=== PATIENT | male | born 1990 | race Two or more races ===

== ENCOUNTER 2024-08-11 00:04 | Inpatient (IN) | payer OTHER ==
[~2024-08-11] VITALS: Ht 170.2 cm; Wt 50.8 kg
--- NOTE | 2024-08-11 00:27 | NUR ---
PTE ALERTA Y ORIENTADO X3 REFIERE TENER INFECCION EN EL DEDO PULGAR DEL PIE JUL[place] A [place] DE [place], SE YOSVANY SV MAS SE UBICA.
[2024-08-11] MEDS ORDERED: VANCOMYCIN HCL 1,000 MG VIAL IV STA (05:10)
--- NOTE | 2024-08-11 05:32 | NUR ---
SE ORIENTA PTE SOBRE TRATAMIENTO MEDICO Y SE EJECUTA
[2024-08-11 06:13] LABS: BASO % 0.7 % (0.1-1.2); EOS # 0.04 (0.04-0.54); EOS % 0.5 % (0.7-7.0); LYMPH # 2.25 (1.18-3.74); LYMPH % 28.0 % (19.3-53.1); MEAN PLATELET VOLUME 10.00 fl (9.4-12.4); MONO # 1.12 (0.24-0.82); NEUT # 4.54 (1.56-6.13); NEUT % 56.7 % (34.0-71.1); RED CELL DISTRIBUTION WIDTH 12.1 % (11.6-14.4)
[2024-08-11 06:23] LABS: MONO % 13.9 % (4.7-12.5)
[2024-08-11 06:26] LABS: ERYTHROCYTE SEDIMENTATION RATE 7 mm/hr (0-15)
[2024-08-11 06:34] LABS: ALT/SGPT 36.0 U/L (12-78); AST/SGOT 22.0 U/L (15-37); BILIRUBIN TOTAL 0.5 mg/dL (0.3-1.2); BUN CREA RATIO 14.0 (7.0-25.0); CREATININE SERUM 1.14 mg/dL (0.70-1.30); GFR 73.1; GLOBULINA 3.0 G/DL (2.4-3.5); GLUCOSE FASTING 108.0 mg/dL (65-100); OSMOLALITY SERUM 277.0 MOSM/KG (275-295)
[2024-08-11 06:45] LABS: INR 1.07
[2024-08-11] MEDS ORDERED: 0.9 % SODIUM CHLORIDE 1,000 ML IV SCH (08:00)
[2024-08-11] MEDS ORDERED: KETOROLAC TROMETHAMINE 30 MG VIAL IM PRN (08:00)
[2024-08-11] MEDS ORDERED: DEXTROSE 50 % IN WATER 0.5 G/ML DISP.SYRIN IV PRN (08:15)
[2024-08-11] MEDS ORDERED: INSULIN LISPRO 1,000 UNIT/10 ML UNITS SUBCUTANEO PRN (08:15)
[2024-08-11] MEDS ORDERED: VANCOMYCIN HCL 1,000 MG VIAL IV SCH ×2 (09:00→17:00)
[2024-08-11] MEDS ORDERED: SODIUM HYPOCHLORITE 1OZ TOP SCH (11:04)
[2024-08-11] MEDS ORDERED: DEXTROSE 50 % IN WATER 0.5 G/ML VIAL IV PRN (19:45)
[2024-08-11 21:01] VITALS: BP 99/64
[2024-08-12 02:32] VITALS: BP 86/57; O2SAT 96
[2024-08-12 06:29] LABS: INR 1.08
[2024-08-12] MEDS ORDERED: ORPHENADRINE CITRATE 30 MG/ML AMPUL IV PRN (08:30)
[2024-08-12 08:47] VITALS: BP 95/65; O2SAT 100
[2024-08-12] MEDS ORDERED: LACTOBACILLUS ACIDOPHILUS 1 CAP CAP PO SCH (09:00)
[2024-08-12] MEDS ORDERED: FAMOTIDINE/PF 20 MG in 0.9 % SODIUM CHLORIDE 100 ML IV SCH (09:00)
[2024-08-12 17:39] VITALS: BP 98/69
[2024-08-13 01:17] VITALS: BP 100/63; BP 105/60; O2SAT 96; O2SAT 99
[2024-08-13 06:30] LABS: BUN CREA RATIO 22.0 (7.0-25.0); CREATININE SERUM 0.76 mg/dL (0.70-1.30); GFR 116.71; GLUCOSE FASTING 102.0 mg/dL (65-100); OSMOLALITY SERUM 285.0 MOSM/KG (275-295); TSH 2.24 uIU/mL (0.358-3.74)
[2024-08-13 08:44] VITALS: BP 95/57; O2SAT 98
[2024-08-13] MEDS ORDERED: LINEZOLID IN DEXTROSE 5% 300 ML IV SCH (17:00)
[2024-08-13 18:37] VITALS: BP 101/66; O2SAT 98
[2024-08-14 03:15] VITALS: BP 97/57; O2SAT 97
[2024-08-14 07:59] LABS: ALT/SGPT 28.0 U/L (12-78); AST/SGOT 17.0 U/L (15-37); BILIRUBIN TOTAL 0.67 mg/dL (0.3-1.2); BUN CREA RATIO 20.0 (7.0-25.0); CREATININE SERUM 0.87 mg/dL (0.70-1.30); GFR 99.86; GLOBULINA 2.9 G/DL (2.4-3.5); GLUCOSE FASTING 82.0 mg/dL (65-100); OSMOLALITY SERUM 282.0 MOSM/KG (275-295)
[2024-08-14 08:07] LABS: BASO % 0.9 % (0.1-1.2); EOS # 0.26 (0.04-0.54); EOS % 3.3 % (0.7-7.0); LYMPH # 2.45 (1.18-3.74); LYMPH % 31.5 % (19.3-53.1); MEAN PLATELET VOLUME 10.20 fl (9.4-12.4); MONO # 0.73 (0.24-0.82); MONO % 9.4 % (4.7-12.5); NEUT # 4.25 (1.56-6.13); NEUT % 54.6 % (34.0-71.1); RED CELL DISTRIBUTION WIDTH 12.2 % (11.6-14.4)
[2024-08-14 16:34] VITALS: BP 131/88; O2SAT 100
[2024-08-15 03:04] VITALS: BP 92/50; O2SAT 97
[2024-08-15 08:51] VITALS: BP 94/50; O2SAT 97
[2024-08-15 17:26] VITALS: BP 105/66; O2SAT 99
[2024-08-15] MEDS ORDERED: BISMUTH SUBSALICYLATE 524 MG/30 ML BLIST.PACK PO PRN (17:30)
[2024-08-16 00:05] VITALS: BP 97/61; O2SAT 98
[2024-08-16 13:00] VITALS: BP 100/72; O2SAT 96
[2024-08-16 16:19] LABS: BASO % 0.7 % (0.1-1.2); EOS # 0.16 (0.04-0.54); EOS % 2.0 % (0.7-7.0); LYMPH # 1.86 (1.18-3.74); LYMPH % 23.1 % (19.3-53.1); MEAN PLATELET VOLUME 9.40 fl (9.4-12.4); MONO # 0.41 (0.24-0.82); MONO % 5.1 % (4.7-12.5); NEUT # 5.54 (1.56-6.13); NEUT % 68.7 % (34.0-71.1); RED CELL DISTRIBUTION WIDTH 11.9 % (11.6-14.4)
[2024-08-16 16:49] LABS: ALT/SGPT 34.0 U/L (12-78); AST/SGOT 23.0 U/L (15-37); BILIRUBIN TOTAL 0.49 mg/dL (0.3-1.2); BUN CREA RATIO 18.0 (7.0-25.0); CREATININE SERUM 0.91 mg/dL (0.70-1.30); GFR 94.81; GLOBULINA 3.4 G/DL (2.4-3.5); GLUCOSE FASTING 99.0 mg/dL (65-100); OSMOLALITY SERUM 284.0 MOSM/KG (275-295)
[2024-08-16 17:12] VITALS: BP 117/72; O2SAT 100
[2024-08-16] MEDS ORDERED: LINEZOLID 600 MG TABLET PO SCH (21:00)
[2024-08-17] VITALS: BP 103/62; O2SAT 98
[2024-08-17 09:15] VITALS: BP 93/52; O2SAT 99
[2024-08-17 17:03] VITALS: BP 101/63; O2SAT 98
[2024-08-18 02:14] VITALS: BP 97/61; O2SAT 97
[2024-08-18 09:26] VITALS: BP 99/65; O2SAT 98
[2024-08-18] MEDS ORDERED: FAMOTIDINE/PF 20 MG/2 ML VIAL IV STA (10:17)
== END 2024-08-18 10:32 | disposition home or self-care (01) | DRG 580 ==
LOC: ER 00:04 → SEC-K 08:16 → MEDI 08:16
PROVIDERS: General Practice; Internal Medicine Endocrinology, Diabetes & Metabolism; Internal Medicine Infectious Disease; ADMIT Internal Medicine; ATTEND Internal Medicine
PROC: 0JBR3ZZ Excision of Left Foot Subcutaneous Tissue and Fascia, Percutaneous Approach (ICD-10-PCS; principal; 2024-08-11)
PROC: BQ3MZZZ Magnetic Resonance Imaging (MRI) of Left Foot (ICD-10-PCS; 2024-08-11)
PROC: B44HZZZ Ultrasonography of Bilateral Lower Extremity Arteries (ICD-10-PCS; 2024-08-11)
PROC: BQ3MZZZ Magnetic Resonance Imaging (MRI) of Left Foot (ICD-10-PCS; 2024-08-16)
DX: L03.032 Cellulitis of left toe (principal); L97.528 Non-pressure chronic ulcer of other part of left foot with other specified severity; L98.0 Pyogenic granuloma; L08.89 Other specified local infections of the skin and subcutaneous tissue; E16.1 Other hypoglycemia